=== PATIENT | male | born 1955 | race American Indian/Alaskan Native ===

== ENCOUNTER 2020-12-30 20:32 | Emergency (ER) | payer MEDICARE ==
--- NOTE | 2020-12-30 22:41 | Event Note ---
ED Screening Note Date of service: 12/30/20 Time: 22:39 ED Screening Note: Patient is a 65-year-old -[place] male with a history of chronic osteoarthritis, chronic BPH and chronic urinary retention who presents to the ED with acute onset persistent suprapubic pressure and pain for the last 8 hours. Patient states that he had previously been using indwelling Coffman catheter but which was removed over 12 hours ago. Patient states that he has not voided any urine since the Coffman catheter was removed and now complains of severe suprapubic pressure and pain from urinary retention. Patient denies traumatic injury, fever, chills, nausea, vomiting, diarrhea, dizziness, syncope, bowel i ncontinence, traumatic injury or change in vision, chest pain or shortness of breath. This initial assessment/diagnostic orders/clinical plan/treatment(s) is/are subject to change based on patients health status, clinical progression and re- assessment by fellow clinical providers in the ED. Further treatment and workup at subsequent clinical providers discretion. Patient/guardian urged not to elope from the ED as their condition may be serious if not clinically assessed and managed. Initial orders include: Urinalysis; Coffman catheter placement
--- NOTE | 2020-12-30 22:56 | Emergency Department Report ---
ED General Adult HPI - General Chief complaint: Urogenital-Male Stated complaint: SRINIVASAN CAME OUT PUI?: No Time Seen by Provider: 12/30/20 22:47 Source: patient, RN notes reviewed, old records reviewed Mode of arrival: Ambulatory Limitations: Physical Limitation - History of Present Illness Initial comments: The patient was evaluated in the emergency department for symptoms described in the history of present illness. He/she was evaluated in the context of the global COVID-19 pandemic, which necessitated consideration that the patient might be at risk for infection with the virus that causes COVID-19. Institutional protocols and algorithms that pertain to the evaluation of patients at risk for COVID-19 are in a state of rapid change based on information released by regulatory bodies including the CDC and federal and [facility] organizations. These policies and algorithms were followed during the patient's care in the emergency department. Please note that these policies, procedures and recommendations changed on a rapid basis. EMS documentation not available at time of chart dictation Primary CARE doctor: Dr. Ortega Urology: [facility] Past medical history: Colon cancer, colostomy in place, urinary retention, BPH, Srinivasan catheter in place for 2 years, hypertension gout, anemia, and arthritis The patient is a 65-year-old gentleman. He is not known to myself previously. He presents to the ER today with a complaint of dislodged Srinivasan catheter. Apparently, his Srinivasan catheter "stopped working", as per the patient, earlier on yesterday, December 30. He reports that his Srinivasan catheter was removed, "because it was not working." He reports that the nurses practitioner attempted to replace his Srinivasan catheter, at the snf, and was unsuccessful. He was thus referred to the emergency room. The patient denies headache, neck pain, chest pain. He has suprapubic abdominal pain. He has nausea and vomiting. He has no testicular pain. He has no extremity weakness or numbness. His symptoms are constant. They worsen with palpation. They decreased with rest, pain medication and nausea medication. -: Gradual, hour(s) Location: abdomen (Suprapubic abdominal region) Radiation: non-radiation Consistency: constant Improves with: other Worsens with: other - Related Data Home Medications Medication Instructions Recorded Confirmed Last Taken No Known Home Medications [No 04/12/14 04/12/14 Unknown Reported Home Medications] Allergies Allergy/AdvReac Type Severity Reaction Status Date / Time No Known Allergies Allergy Verified 04/12/14 21:12 ED Review of Systems ROS: Stated complaint: SRINIVASAN CAME OUT Other details as noted in HPI Constitutional: other (Denies loss of taste and smell). denies: fever Eyes: denies: eye discharge ENT: denies: epistaxis Respiratory: denies: cough Cardiovascular: denies: chest pain Gastrointestinal: abdominal pain, nausea, vomiting Genitourinary: other (Urinary retention) Neurological: weakness (Generalized weakness) Hematological/Lymphatic: denies: easy bleeding ED Past Medical Hx - Past Medical History Previous Medical History?: Yes Hx Arthritis: Yes Additional medical history: colon cancer with colostomy placed - Surgical History Past Surgical History?: Yes Additional Surgical History: colostomy - Social History Smoking Status: Current Every Day Smoker Substance Use Type: Alcohol - Medications Home Medications: Home Medications Medication Instructions Recorded Confirmed Last Taken Type No Known Home Medications [No 04/12/14 04/12/14 Unknown History Reported Home Medications] ED Physical Exam - General Limitations: No Limitations General appearance: alert, anxious - Head Head exam: Present: atraumatic, normocephalic - Eye Eye exam: Present: normal appearance, EOMI. Absent: nystagmus - ENT ENT exam: Present: normal exam, normal orophraynx, mucous membranes moist, normal external ear exam - Neck Neck exam: Present: normal inspection, full ROM. Absent: tenderness, meningismus - Respiratory Respiratory exam: Present: normal lung sounds bilaterally. Absent: respiratory distress, wheezes, rales, rhonchi, stridor, decreased breath sounds - Cardiovascular Cardiovascular Exam: Present: normal rhythm, tachycardia, normal heart sounds. Absent: bradycardia, irregular rhythm, systolic murmur, diastolic murmur, rubs, gallop - GI/Abdominal GI/Abdominal exam: Present: soft, distended (Suprapubic distention), tenderness (Suprapubic tenderness), other (Colostomy noted in left lower quadrant, without redness, pus or streaking). Absent: guarding, rebound, rigid, pulsatile mass - Rectal Rectal exam: Present: deferred - exam: Present: normal inspection, other (There is no testicular tenderness. There is normal testicular lie.). Absent: circumcision (Patient uncircumcised) External exam: Present: normal external exam - Extremities Exam Extremities exam: Present: normal inspection, full ROM, other (2+ pulses noted in the bilateral upper and lower extremities. There is no palpable cord. negative Homans sign. Muscular compartments are soft. The pelvis is stable.). Absent: pedal edema, calf tenderness - Back Exam Back exam: Present: normal inspection. Absent: tenderness, CVA tenderness (R), CVA tenderness (L), paraspinal tenderness, vertebral tenderness - Neurological Exam Neurological exam: Present: alert, other (No facial droop. Tongue midline. Extraocular movements intact bilaterally. Facial sensation intact to light to uch in V1, V2, V3 distribution bilaterally. 5 and a 5 strength in 4 extremities. Sensation intact to light touch in 4 extremities.) - Psychiatric Psychiatric exam: Present: anxious - Skin Skin exam: Present: warm, dry, intact, normal color. Absent: rash ED Course Vital Signs 12/30/20 22:36 Temperature 98.4 F Pulse Rate 114 H Respiratory 18 Rate Blood Pressure 167/95 O2 Sat by Pulse 100 Oximetry - Reevaluation(s) Reevaluation #1: 12/31/20 01:11 Differential diagnosis, including but not limited to: Urinary obstruction, urinary retention, BPH, Srinivasan catheter malfunction, colostomy in place Assessment and plan: 65-year-old gentleman presenting with urinary retention. Nursing team has attempted multiple times to place Srinivasan catheter, 18 Tu[place], 16 Tuvaluan, 14 Tuvaluan, and 12 Tuvaluan. They were unsuccessful. Using typical sterile technique, I personally attempted 16 Tu[place], and subsequently 14 Tu[place] catheter placement, and was unsuccessful. Bladder scan is pending. This emergency room does not have urology available for ER consultation and assistance. We initially reached out to [facility], which patient reports is his typical urologic practice, and [facility] reported to my nursing staff and secretarial staff that they are not excepting transfers at this time, except for traumas and for major strokes. We have thus reached out to [facility]. I have discussed this plan of care with the patient, who verbalized understanding, and was in agreement with this plan of care. This patient has an emergent condition at this time, acute urinary obstruction, which I am not able to definitively managed at this time, secondary to lack of appropriate subspecialty consultation and resources for the emergency room. The patient is awake, alert, oriented, sober, protecting airway, hemodynamically stable, and stable for transfer to tertiary care center for services not available at this facility. 12/31/20 01:44 Patient accepted to the ER at [facility]. Dr. Muro is the ER attending, and Dr. Giovanni Pulliam is the urologist of record. ED Medical Decision Making - Lab Data Result diagrams: 12/30/20 23:37 12/30/20 23:37 Vital Signs 12/30/20 22:36 Temperature 98.4 F Pulse Rate 114 H Respiratory 18 Rate Blood Pressure 167/95 O2 Sat by Pulse 100 Oximetry Lab Results 12/30/20 12/30/20 12/30/20 Range/Units 23:37 23:37 23:37 WBC 9.4 (4.5-11.0) K/mm3 RBC 4.88 (3.65-5.03) M/mm3 Hgb 12.0 (11.8-15.2) gm/dl Hct 38.0 (35.5-45.6) % MCV 78 L (84-94) fl MCH 25 L (28-32) pg MCHC 32 (32-34) % RDW 20.3 H (13.2-15.2) % Plt Count 351 (140-440) K/mm3 PT 13.2 (12.2-14.9) Sec. INR 1.01 (0.87-1.13) Sodium 133 L (137-145) mmol/L Potassium 4.9 (3.6-5.0) mmol/L Chloride 95.0 L (98-107) mmol/L Carbon Dioxide 23 (22-30) mmol/L Anion Gap 20 mmol/L BUN 21 H (9-20) mg/dL Creatinine 1.4 H (0.8-1.3) mg/dL Estimated GFR > 60 ml/min BUN/Creatinine Ratio 15 % Glucose 140 H (75-100) mg/dL Calcium 10.1 (8.4-10.2) mg/dL Magnesium 2.10 (1.7-2.3) mg/dL Total Creatine Kinase 149 (55-170) units/L Critical care attestation.: If time is entered above; I have spent that time in minutes in the direct care of this critically ill patient, excluding procedure time. ED Disposition Clinical Impression: Urinary retention, Srinivasan catheter problem, Elevated blood pressure reading, Colostomy in place Disposition: DC/TX-02 SHRT-TRM GEN HOSP IP Is pt being admited?: No Does the pt Need Aspirin: No Condition: Good Referrals: PRIMARY CARE, [Primary Care Provider] - 3-5 Days
[2020-12-30] MEDS ORDERED: MORPHINE 4 MG/1 ML INJ IV ONE (23:23)
[2020-12-30] MEDS ORDERED: ONDANSETRON 4 MG/2 ML INJ IV ONE (23:23)
[2020-12-30] MEDS ORDERED: LACTATED RINGERS 500 ML IV ONE (23:23)
[2020-12-30] MEDS ORDERED: LIDOCAINE VISCOUS 2% 15 ML ORAL LIQD MM ONE (23:39)
[2020-12-30 23:50] LABS: Mean Corpuscular HGB Conc 32 % (32-34); Mean Corpuscular Volume 78 fl (84-94); Platelet Count 351 K/mm3 (140-440); Red Blood Count 4.88 M/mm3 (3.65-5.03)
[2020-12-30 23:55] LABS: Red Cell Distribution Width 20.3 % (13.2-15.2)
[2020-12-31 00:01] LABS: INR 1.01 (0.87-1.13)
[2020-12-31 00:12] LABS: BUN/Creatinine Ratio 15; Blood Urea Nitrogen 21 mg/dL (9-20); Calcium 10.1 mg/dL (8.4-10.2); Hemolysis Index 37
[2020-12-31 02:29] VITALS: BP 119/74
== END 2020-12-31 04:45 | disposition short-term general hospital (02) ==
LOC: ED 20:32
DX: T83.9XXA Unspecified complication of genitourinary prosthetic device, implant and graft, initial encounter (principal); R33.9 Retention of urine, unspecified; R03.0 Elevated blood-pressure reading, without diagnosis of hypertension; M19.90 Unspecified osteoarthritis, unspecified site; F17.200 Nicotine dependence, unspecified, uncomplicated; Z93.3 Colostomy status; Z98.890 Other specified postprocedural states; Y92.89 Other specified places as the place of occurrence of the external cause
CPT/HCPCS: 36415; 80048; 82550; 83735; 85027; 85610; 96374; 96375; 99284; J2270; J2405; J7120